=== PATIENT | male | born 1965 | race Caucasian/White ===

== ENCOUNTER → 2020-08-15 | Outpatient (CLI) | payer BC ==
[~2020-08-15] MED LIST: AMARYL 2MG TABLE2 MG PO; AMLODIPINE BESY10 MG PO; AMOX TR-K CLV1 EAC4 PO; ASPIRIN EC81 MG PO; BUMETANIDE1 MG PO; BUMETANIDE2 MG PO; COZAAR25 MG PO; CRESTOR40 MG PO; DOXYCYCLINE HY100 MG PO; ELIQUIS 5 MG TAB5 MG PO; FENOFIBRATE160 MG PO; GLUCOTROL 10 MG10 MG PO; HUMALOG 10100 UNITS/ SC; HYDRALAZINE HC100 MG PO; HYDRALAZINE HCL50 MG PO; IPRAT-ALBUT 0.5-3 ML NEB; LOPRESSOR 25 MG25 MG PO; LOPRESSOR 50 MG50 MG PO; ZETIA10 MG PO
== END ==
LOC: US 14:30
DX: N17.9 Acute kidney failure, unspecified (principal)

== ENCOUNTER 2020-09-16 11:16 | Inpatient (IN) | payer BC ==
[~2020-09-16] VITALS: Ht 182.9 cm; Wt 130.2 kg
[2020-09-16 12:21] LABS: HEMOGLOBIN 12.2 gm/dl (14.0-17.5); RED BLOOD COUNT 4.09 M/UL (4.20-5.50); WHITE BLOOD COUNT 9.2 K/UL (4.5-11.0)
[2020-09-17 03:53] LABS: HEMOGLOBIN 11.3 gm/dl (14.0-17.5); RED BLOOD COUNT 3.89 M/UL (4.20-5.50); WHITE BLOOD COUNT 10.3 K/UL (4.5-11.0)
[2020-09-17] MEDS ORDERED: HYDRALAZINE HC100 MG PO (11:12)
[2020-09-17] MEDS ORDERED: HYDRALAZINE HCL50 MG PO (11:13)
[2020-09-17] MEDS ORDERED: FENOFIBRATE160 MG PO (11:15)
[2020-09-17] MEDS ORDERED: AMLODIPINE BESY10 MG PO (11:15)
[2020-09-17] MEDS ORDERED: GLUCOTROL 10 MG10 MG PO (11:17)
[2020-09-17] MEDS ORDERED: AMARYL 2MG TABLE2 MG PO (11:20)
[2020-09-18 03:34] LABS: HEMOGLOBIN 11.8 gm/dl (14.0-17.5); RED BLOOD COUNT 4.02 M/UL (4.20-5.50); WHITE BLOOD COUNT 8.5 K/UL (4.5-11.0)
[2020-09-18 14:06] LABS: URINE CREATININE 73.3 mg/dL
[2020-09-19 04:20] LABS: HEMOGLOBIN 11.4 gm/dl (14.0-17.5); RED BLOOD COUNT 3.91 M/UL (4.20-5.50); WHITE BLOOD COUNT 10.5 K/UL (4.5-11.0)
[2020-09-19] MEDS ORDERED: HUMALOG 10100 UNITS/ SC (11:55)
[2020-09-19] MEDS ORDERED: LOPRESSOR 50 MG50 MG PO (11:55)
[2020-09-19] MEDS ORDERED: DOXYCYCLINE HY100 MG PO (11:55)
[2020-09-19] MEDS ORDERED: IPRAT-ALBUT 0.5-3 ML NEB (11:55)
[2020-09-28] MEDS ORDERED: CRESTOR40 MG PO (13:11)
[2020-10-03] MEDS ORDERED: BUMETANIDE2 MG PO (13:11)
[2021-01-09] MEDS ORDERED: AMOX TR-K CLV1 EAC4 PO (16:01)
== END 2020-09-19 16:40 | disposition home or self-care (01) | DRG 683 ==
LOC: ER1 11:16 → MED SURG 4 14:57 → CDU 14:57 → MED SURG 4 16:49
PROVIDERS: Internal Medicine; Physician Assistant; Student in an Organized Health Care Education/Training Program; ADMIT Hospitalist
PROC: B24BZZZ Ultrasonography of Heart with Aorta (ICD-10-PCS; principal; 2020-09-17)
DX: I12.9 Hypertensive chronic kidney disease with stage 1 through stage 4 chronic kidney disease, or unspecified chronic kidney disease (principal); N17.9 Acute kidney failure, unspecified; N18.5 Chronic kidney disease, stage 5; E11.22 Type 2 diabetes mellitus with diabetic chronic kidney disease; E11.21 Type 2 diabetes mellitus with diabetic nephropathy; I16.0 Hypertensive urgency; Z20.822 Contact with and (suspected) exposure to COVID-19; E78.5 Hyperlipidemia, unspecified; F17.210 Nicotine dependence, cigarettes, uncomplicated; Z79.899 Other long term (current) drug therapy; Z80.3 Family history of malignant neoplasm of breast
CPT/HCPCS: ECHO; 36415; 71045; 80048; 80053; 82550; 82553; 82570; 82575; 82962; 83605; 83690; 83874; 83880; 84100; 84156; 84484; 85025; 86140; 93005; 93306; 94640; 94760; 99285; J0360; J0696; J1940; J7070; P9047; U0002

== ENCOUNTER 2020-10-08 08:10 | Inpatient (IN) | payer BC ==
[~2020-10-08] VITALS: Ht 185.4 cm; Wt 122.5 kg
[~2020-10-08 08:10] MED LIST changes: -AMOX TR-K CLV1 EAC4 PO; -ASPIRIN EC81 MG PO; -BUMETANIDE1 MG PO; -COZAAR25 MG PO; -ELIQUIS 5 MG TAB5 MG PO; -LOPRESSOR 25 MG25 MG PO; -ZETIA10 MG PO
[2020-10-08 08:59] LABS: HEMOGLOBIN 12.4 gm/dl (14.0-17.5); RED BLOOD COUNT 4.24 M/UL (4.20-5.50); WHITE BLOOD COUNT 9.6 K/UL (4.5-11.0)
[2020-10-08 09:23] LABS: BUN/CREATININE RATIO 8 (0-10)
[2020-10-08] MEDS ORDERED: ZETIA10 MG PO (13:12)
[2020-10-09 04:02] LABS: RED BLOOD COUNT 4.17 M/UL (4.20-5.50); WHITE BLOOD COUNT 8.9 K/UL (4.5-11.0)
[2020-10-10 03:56] LABS: HEMOGLOBIN 11.4 gm/dl (14.0-17.5); RED BLOOD COUNT 3.98 M/UL (4.20-5.50); WHITE BLOOD COUNT 7.5 K/UL (4.5-11.0)
[2020-10-10 10:15] LABS: HBSAG SCREEN Negative (Negative); HEP B CORE AB, TOT Negative (Negative); HEP C VIRUS AB <0.1 (0.0-0.9)
[2020-10-12 05:08] LABS: HEMOGLOBIN 12.2 gm/dl (14.0-17.5); RED BLOOD COUNT 4.32 M/UL (4.20-5.50); WHITE BLOOD COUNT 8.5 K/UL (4.5-11.0)
[2020-10-13 04:52] LABS: HEMOGLOBIN 10.6 gm/dl (14.0-17.5); WHITE BLOOD COUNT 8.3 K/UL (4.5-11.0)
[2020-10-13 04:53] LABS: RED BLOOD COUNT 3.82 M/UL (4.20-5.50)
[2020-10-16 05:21] LABS: HEMOGLOBIN 11.7 gm/dl (14.0-17.5); RED BLOOD COUNT 4.07 M/UL (4.20-5.50); WHITE BLOOD COUNT 9.4 K/UL (4.5-11.0)
[2020-10-16] MEDS ORDERED: ASPIRIN EC81 MG PO (12:23)
[2020-10-16] MEDS ORDERED: HUMALOG 10100 UNITS/ SC (12:27)
[2021-01-09] MEDS ORDERED: AMOX TR-K CLV1 EAC4 PO (16:01)
== END 2020-10-16 15:55 | disposition home or self-care (01) | DRG 673 ==
LOC: ER1 08:10 → CDU 10:54 → M/S 10:54
PROVIDERS: Family Medicine; Hospitalist; Internal Medicine; Internal Medicine Nephrology; Physician Assistant; ADMIT Internal Medicine
PROC: 0JH63XZ Insertion of Tunneled Vascular Access Device into Chest Subcutaneous Tissue and Fascia, Percutaneous Approach (ICD-10-PCS; 2020-10-12)
PROC: 02HV33Z Insertion of Infusion Device into Superior Vena Cava, Percutaneous Approach (ICD-10-PCS; 2020-10-12)
PROC: B5181ZA Fluoroscopy of Superior Vena Cava using Low Osmolar Contrast, Guidance (ICD-10-PCS; 2020-10-12)
PROC: 5A1D70Z Performance of Urinary Filtration, Intermittent, Less than 6 Hours Per Day (ICD-10-PCS; principal; 2020-10-15)
PROC: 5A1D70Z Performance of Urinary Filtration, Intermittent, Less than 6 Hours Per Day (ICD-10-PCS; 2020-10-16)
DX: E11.22 Type 2 diabetes mellitus with diabetic chronic kidney disease (principal); J81.0 Acute pulmonary edema; N18.6 End stage renal disease; Z20.822 Contact with and (suspected) exposure to COVID-19; J90 Pleural effusion, not elsewhere classified; I12.0 Hypertensive chronic kidney disease with stage 5 chronic kidney disease or end stage renal disease; N18.4 Chronic kidney disease, stage 4 (severe); E78.5 Hyperlipidemia, unspecified; E66.01 Morbid (severe) obesity due to excess calories; F17.210 Nicotine dependence, cigarettes, uncomplicated; D63.1 Anemia in chronic kidney disease; E87.6 Hypokalemia; Z79.899 Other long term (current) drug therapy; Z79.4 Long term (current) use of insulin; Z68.39 Body mass index [BMI] 39.0-39.9, adult
CPT/HCPCS: 36415; 71045; 77001; 80048; 80053; 82550; 82553; 82570; 82575; 82962; 83735; 83874; 83880; 84484; 85007; 85025; 85027; 85610; 85730; 86704; 86706; 86708; 86803; 87340; 90937; 93005; 94760; 96365; 96366; 96372; 96375; 96376; 99284; C1750; C1752; C1769; J0690; J1205; J1940; J2250; J2405; J2704; J2997; J3010; J7030; J7040; J7120; P9047; U0002

== ENCOUNTER 2020-12-08 09:43 | Emergency (ER) | payer BC ==
[~2020-12-08 09:43] MED LIST changes: +ASPIRIN EC81 MG PO; +ZETIA10 MG PO
[2020-12-08 14:47] LABS: HEMOGLOBIN 11.5 gm/dl (14.0-17.5); RED BLOOD COUNT 3.98 M/UL (4.20-5.50); WHITE BLOOD COUNT 10.9 K/UL (4.5-11.0)
[2021-01-09] MEDS ORDERED: AMOX TR-K CLV1 EAC4 PO (16:01)
== END 2020-12-08 19:12 | disposition home or self-care (01) ==
LOC: ER1 09:43
PROVIDERS: Emergency Medicine
DX: R22.0 Localized swelling, mass and lump, head (principal); E11.22 Type 2 diabetes mellitus with diabetic chronic kidney disease; N18.6 End stage renal disease; M79.89 Other specified soft tissue disorders
CPT/HCPCS: ECHO; 71260; 80053; 85025; 85610; 85730; 93306; 93971; 99284; Q9967

== ENCOUNTER 2021-01-16 12:35 | Observation (INO) | payer BC ==
[~2021-01-16] VITALS: Ht 182.9 cm; Wt 108.0 kg
[~2021-01-16 12:35] MED LIST changes: +AMOX TR-K CLV1 EAC4 PO
[2021-01-16 13:08] LABS: HEMOGLOBIN 9.6 gm/dl (14.0-17.5); RED BLOOD COUNT 3.43 M/UL (4.20-5.50); WHITE BLOOD COUNT 13.9 K/UL (4.5-11.0)
[2021-01-16 14:00] LABS: BUN/CREATININE RATIO 9 (0-10)
[2021-01-16] MEDS ORDERED: FENOFIBRATE160 MG PO (16:01)
[2021-01-16] MEDS ORDERED: BUMETANIDE1 MG PO (16:02)
[2021-01-16] MEDS ORDERED: COZAAR25 MG PO (16:03)
[2021-01-17 00:41] LABS: HEMOGLOBIN 9.3 gm/dl (14.0-17.5); RED BLOOD COUNT 3.4 M/UL (4.20-5.50); WHITE BLOOD COUNT 13.5 K/UL (4.5-11.0)
[2021-01-17 01:09] LABS: BUN/CREATININE RATIO 9 (0-10)
[2021-01-17] MEDS ORDERED: ELIQUIS 5 MG TAB5 MG PO (12:11)
[2021-01-17] MEDS ORDERED: LOPRESSOR 25 MG25 MG PO (13:15)
== END 2021-01-17 14:12 | disposition home or self-care (01) ==
LOC: ER1 12:35 → CDU 15:19 → M/S 16:40
PROVIDERS: Physician Assistant Medical; ADMIT Internal Medicine
DX: I48.0 Paroxysmal atrial fibrillation (principal); I12.0 Hypertensive chronic kidney disease with stage 5 chronic kidney disease or end stage renal disease; E11.22 Type 2 diabetes mellitus with diabetic chronic kidney disease; N18.6 End stage renal disease; E78.5 Hyperlipidemia, unspecified; D72.829 Elevated white blood cell count, unspecified; F17.210 Nicotine dependence, cigarettes, uncomplicated; J98.11 Atelectasis; Z20.822 Contact with and (suspected) exposure to COVID-19; Z99.2 Dependence on renal dialysis; E87.6 Hypokalemia; R53.83 Other fatigue; Z79.4 Long term (current) use of insulin; Z79.82 Long term (current) use of aspirin
CPT/HCPCS: 36415; 71045; 80048; 80053; 82550; 82553; 82962; 83735; 83874; 84484; 85025; 85027; 90945; 93005; 93270; 99285; G0378; U0002

== ENCOUNTER → 2021-11-28 | Outpatient (CLI) | payer BC ==
[~2021-11-28] MED LIST changes: +BUMETANIDE1 MG PO; +COZAAR25 MG PO; +ELIQUIS 5 MG TAB5 MG PO; +LOPRESSOR 25 MG25 MG PO
== END ==
LOC: LAB 14:02
DX: K65.9 Peritonitis, unspecified (principal)
CPT/HCPCS: 36415; 80202

== ENCOUNTER → 2021-12-24 | Outpatient (CLI) | payer BC | LOC: LAB 14:23 | DX: K65.9 Peritonitis, unspecified (principal) | CPT/HCPCS: 36415; 80202 ==

== ENCOUNTER 2022-01-14 21:07 | Emergency (ER) | payer BC ==
[2022-01-14 21:25] LABS: HEMOGLOBIN 9.6 gm/dl (14.0-17.5); RED BLOOD COUNT 3.47 M/UL (4.20-5.50)
== END 2022-01-15 00:34 | disposition left against medical advice (07) ==
LOC: ER1 21:07
PROVIDERS: Student in an Organized Health Care Education/Training Program
DX: R07.9 Chest pain, unspecified (principal); E11.9 Type 2 diabetes mellitus without complications; I10 Essential (primary) hypertension; F17.210 Nicotine dependence, cigarettes, uncomplicated
CPT/HCPCS: 71045; 80053; 82550; 82553; 84484; 85025; 93005; 99281

== ENCOUNTER → 2022-04-12 | Outpatient (CLI) | payer BC | LOC: LAB 14:07 | DX: K65.9 Peritonitis, unspecified (principal) | CPT/HCPCS: 36415; 80202 ==